=== PATIENT | male | born 1995 | race Caucasian/White ===

== ENCOUNTER 2024-05-17 21:53 | Emergency (ER) | payer BC ==
[2024-05-17] MEDS ORDERED: Sodium Chloride 0.9% 1000 ML 1,000 ML ONE (22:12)
[2024-05-17] MEDS ORDERED: Adenocard IV 6 MG/2 ML IV ONE (22:12)
--- NOTE | 2024-05-17 22:30 | ERPHSYRPT ---
- History of Present Illness Time Seen by Provider: 05/17/24 22:26 Historian: patient Exam Limitations: no limitations Physician History: 29-year-old male presented in the ER with sudden onset palpitation and chest tightness while he was lying in the bed prior to arrival. Patient reports mild shortness of breath because of chest tightness. Patient reports having similar symptoms 3 times in the past but has never been seen by physician chief of pathology. Patient is not SVT on presentation with heart rate in 170s. Denies any fever or chills, drug intake, extra caffeine intake. Aspirin Treatment Today: no aspirin today Allergies/Adverse Reactions: No Known Drug Allergies Allergy (Verified 05/17/24 22:31) Home Medications: Sertraline HCl 50 mg [Zoloft 50 mg Tablet] 50 mg PO DAILY 05/17/24 [History] - Review of Systems Constitutional: No Symptoms Eyes: No Symptoms Ears, Nose, & Throat: No Symptoms Respiratory: No Symptoms Cardiac: Palpitations Abdominal/Gastrointestinal: No Symptoms Genitourinary Symptoms: No Symptoms Musculoskeletal: No Symptoms Skin: No Symptoms Neurological: No Symptoms Endocrine: No Symptoms Hematologic/Lymphatic: No Symptoms - Nursing Vital Signs Nursing Vital Signs: Initial Vital Signs Temperature 97.8 F 05/17/24 22:00 Pulse Rate 179 H 05/17/24 22:00 Respiratory Rate 18 05/17/24 22:00 Blood Pressure 145/112 05/17/24 22:00 O2 Sat by Pulse Oximetry 99 05/17/24 22:00 Pain Scale Pain Intensity 3 - Physical Exam General Appearance: no apparent distress, alert Eye Exam: PERRL/EOMI Ears, Nose, Throat Exam: normal ENT inspection Neck Exam: normal inspection, supple, full range of motion Respiratory Exam: normal breath sounds, lungs clear Cardiovascular Exam: normal heart sounds, tachycardia Gastrointestinal/Abdomen Exam: soft, normal bowel sounds, No tenderness Back Exam: normal inspection, normal range of motion Extremity Exam: normal inspection, normal range of motion Neurologic Exam: alert, oriented x 3, cooperative, billing analyst II-XII nml as tested Skin Exam: normal color SpO2 Interpretation: normal SpO2: 98 O2 Delivery: Room Air - Course EKG Interpreted by Me: RATE (177 SVT), NORMAL AXIS, NORMAL INTERVALS, Other (ST depression in inferolateral leads) Rhythm Strip: Rate (EKG time 2216. Rate 123 bpm, sinus tach, normal axis, normal intervals, no ST elevations or depressions.) Ordered Tests: Active Orders 24 hr Category Date Time Status Metal Tile Setter STAT Care 05/17/24 22:26 Completed EKG-ER Only STAT Care 05/17/24 22:26 Completed IV Insertion STAT Care 05/17/24 22:26 Completed CHEST 1 VIEW (PORTABLE) Stat Exams 05/17/24 22:36 Taken CBC W DIFF Stat Lab 05/17/24 22:33 Completed CMP Stat Lab 05/17/24 22:33 Completed D-DIMER QUANTITATIVE Stat Lab 05/17/24 22:33 Completed MAG [MAGNESIUM] Stat Lab 05/17/24 22:33 Completed NT PRO BNPII Stat Lab 05/17/24 22:33 Completed TROPONIN Q4H Lab 05/17/24 22:33 Completed TROPONIN Q4H Lab 05/18/24 00:22 Completed TSH [TSH, 3RD Generation] Stat Lab 05/17/24 22:33 Completed Urine Triage Profile Stat Lab 05/17/24 22:46 Completed Medication Summary Discontinued Medications Generic Name Dose Route Start Last Admin Trade Name Freq PRN Reason Stop Dose Admin Adenosine Confirm 05/17/24 22:12 Adenosine 6 Mg/2 Ml Vial Administered 05/17/24 22:13 Dose 18 mg IV .STK-MED ONE Aspirin 324 mg 05/17/24 22:26 05/17/24 22:34 Aspirin 81 Mg Tab.Chew PO 05/17/24 22:27 324 mg STAT ONE Administration Aspirin Confirm 05/17/24 22:32 Aspirin 81 Mg Tab.Chew Administered 05/17/24 22:33 Dose 324 mg .ROUTE .STK-MED ONE Sodium Chloride Confirm 05/17/24 22:12 Sodium Chloride 0.9% 1000 Ml Administered 05/17/24 22:13 Dose 1,000 mls @ ud .ROUTE .STK-MED ONE Sodium Chloride 1,000 mls @ 999 mls/hr 05/17/24 22:26 05/17/24 23:47 Sodium Chloride 0.9% 1000 Ml IV 05/17/24 23:26 Infused .Q1H1M STA Infusion Lab/Rad Data: Laboratory Result Diagrams 05/17/24 22:33 05/17/24 22:33 Laboratory Results 05/18/24 05/17/24 05/17/24 Range/Units 00:22 22:46 22:33 WBC (4.23-9.07) x10^3/uL RBC (4.63-6.08) x10^6/uL Hgb (13.7-17.5) g/dL Hct (40.1-51.0) % MCV (79.0-92.2) fL MCH (25.7-32.2) pg MCHC (32.3-36.5) g/dL RDW (11.6-14.4) % Plt Count (163-337) x10^3/uL MPV (9.4-12.4) fL Gran % (34.0-67.9) % Immature Gran % (Auto) (0.001-0.429) % Nucleat RBC Rel Count (0.00-0.2) % Eos # (Auto) (0.04-0.54) x10^3/uL Immature Gran # (Auto) (0.001-0.031) x10^3u/L Absolute Lymphs (auto) (1.32-3.57) x10^3/uL Absolute Monos (auto) (0.30-0.82) x10^3/uL Absolute Nucleated RBC (0.00-0.012) x10^3u/L Lymphocytes % (21.8-53.1) % Monocytes % (5.3-12.2) % Eosinophils % (0.8-7.0) % Basophils % (0.2-1.2) % Absolute Granulocytes (1.78-5.38) x10^3/uL Basophils # (0.01-0.08) x10^3/uL D-Dimer (0.0-0.50) mg/L Sodium (135-145) mmol/L Potassium (3.5-5.1) mmol/L Chloride (98-107) mmol/L Carbon Dioxide (22-30) mmol/L Anion Gap (5-15) MEQ/L BUN (9-20) mg/dL Creatinine (0.66-1.25) mg/dL Estimated GFR ML/MIN Glucose (74-106) mg/dL Calcium (8.4-10.2) mg/dL Magnesium (1.6-2.3) mg/dL Total Bilirubin (0.2-1.3) mg/dL AST (17-59) U/L ALT (0-50) U/L Alkaline Phosphatase (38-126) U/L Troponin I < 0.012 < 0.012 (0.000-0.033) ng/mL NT-Pro-B Natriuret Pep (<300) pg/mL Serum Total Protein (6.3-8.2) g/dL Albumin (3.5-5.0) g/dL TSH 3rd Generation (0.470-4.680) mIU/L Urine Opiates Level NEGATIVE (NEGATIVE) Ur Methadone NEGATIVE (NEGATIVE) Urine Barbiturates NEGATIVE (NEGATIVE) Ur Phencyclidine (PCP) NEGATIVE (NEGATIVE) Urine Amphetamine NEGATIVE (NEGATIVE) U Benzodiazepine Level NEGATIVE (NEGATIVE) Urine Cocaine NEGATIVE (NEGATIVE) Urine Marijuana (THC) NEGATIVE (NEGATIVE) 05/17/24 05/17/24 05/17/24 Range/Units 22:33 22:33 22:33 WBC (4.23-9.07) x10^3/uL RBC (4.63-6.08) x10^6/uL Hgb (13.7-17.5) g/dL Hct (40.1-51.0) % MCV (79.0-92.2) fL MCH (25.7-32.2) pg MCHC (32.3-36.5) g/dL RDW (11.6-14.4) % Plt Count (163-337) x10^3/uL MPV (9.4-12.4) fL Gran % (34.0-67.9) % Immature Gran % (Auto) (0.001-0.429) % Nucleat RBC Rel Count (0.00-0.2) % Eos # (Auto) (0.04-0.54) x10^3/uL Immature Gran # (Auto) (0.001-0.031) x10^3u/L Absolute Lymphs (auto) (1.32-3.57) x10^3/uL Absolute Monos (auto) (0.30-0.82) x10^3/uL Absolute Nucleated RBC (0.00-0.012) x10^3u/L Lymphocytes % (21.8-53.1) % Monocytes % (5.3-12.2) % Eosinophils % (0.8-7.0) % Basophils % (0.2-1.2) % Absolute Granulocytes (1.78-5.38) x10^3/uL Basophils # (0.01-0.08) x10^3/uL D-Dimer < 0.19 (0.0-0.50) mg/L Sodium 140 (135-145) mmol/L Potassium 3.6 (3.5-5.1) mmol/L Chloride 99 (98-107) mmol/L Carbon Dioxide 29 (22-30) mmol/L Anion Gap 14.6 (5-15) MEQ/L BUN 19 (9-20) mg/dL Creatinine 1.20 (0.66-1.25) mg/dL Estimated GFR 82.9 ML/MIN Glucose 98 (74-106) mg/dL Calcium 9.6 (8.4-10.2) mg/dL Magnesium 2.1 (1.6-2.3) mg/dL Total Bilirubin 0.50 (0.2-1.3) mg/dL AST 62 H (17-59) U/L ALT 79 H (0-50) U/L Alkaline Phosphatase 106 (38-126) U/L Troponin I (0.000-0.033) ng/mL NT-Pro-B Natriuret Pep < 20.0 (<300) pg/mL Serum Total Protein 8.2 (6.3-8.2) g/dL Albumin 4.8 (3.5-5.0) g/dL TSH 3rd Generation 1.488 (0.470-4.680) mIU/L Urine Opiates Level (NEGATIVE) Ur Methadone (NEGATIVE) Urine Barbiturates (NEGATIVE) Ur Phencyclidine (PCP) (NEGATIVE) Urine Amphetamine (NEGATIVE) U Benzodiazepine Level (NEGATIVE) Urine Cocaine (NEGATIVE) Urine Marijuana (THC) (NEGATIVE) 05/17/24 Range/Units 22:33 WBC 11.1 H (4.23-9.07) x10^3/uL RBC 5.39 (4.63-6.08) x10^6/uL Hgb 16.6 (13.7-17.5) g/dL Hct 48.3 (40.1-51.0) % MCV 89.6 (79.0-92.2) fL MCH 30.8 (25.7-32.2) pg MCHC 34.4 (32.3-36.5) g/dL RDW 11.9 (11.6-14.4) % Plt Count 314 (163-337) x10^3/uL MPV 9.5 (9.4-12.4) fL Gran % 57.0 (34.0-67.9) % Immature Gran % (Auto) 0.3 (0.001-0.429) % Nucleat RBC Rel Count 0.0 (0.00-0.2) % Eos # (Auto) 0.09 (0.04-0.54) x10^3/uL Immature Gran # (Auto) 0.03 (0.001-0.031) x10^3u/L Absolute Lymphs (auto) 3.35 (1.32-3.57) x10^3/uL Absolute Monos (auto) 1.27 H (0.30-0.82) x10^3/uL Absolute Nucleated RBC 0.00 (0.00-0.012) x10^3u/L Lymphocytes % 30.1 (21.8-53.1) % Monocytes % 11.4 (5.3-12.2) % Eosinophils % 0.8 (0.8-7.0) % Basophils % 0.4 (0.2-1.2) % Absolute Granulocytes 6.34 H (1.78-5.38) x10^3/uL Basophils # 0.04 (0.01-0.08) x10^3/uL D-Dimer (0.0-0.50) mg/L Sodium (135-145) mmol/L Potassium (3.5-5.1) mmol/L Chloride (98-107) mmol/L Carbon Dioxide (22-30) mmol/L Anion Gap (5-15) MEQ/L BUN (9-20) mg/dL Creatinine (0.66-1.25) mg/dL Estimated GFR ML/MIN Glucose (74-106) mg/dL Calcium (8.4-10.2) mg/dL Magnesium (1.6-2.3) mg/dL Total Bilirubin (0.2-1.3) mg/dL AST (17-59) U/L ALT (0-50) U/L Alkaline Phosphatase (38-126) U/L Troponin I (0.000-0.033) ng/mL NT-Pro-B Natriuret Pep (<300) pg/mL Serum Total Protein (6.3-8.2) g/dL Albumin (3.5-5.0) g/dL TSH 3rd Generation (0.470-4.680) mIU/L Urine Opiates Level (NEGATIVE) Ur Methadone (NEGATIVE) Urine Barbiturates (NEGATIVE) Ur Phencyclidine (PCP) (NEGATIVE) Urine Amphetamine (NEGATIVE) U Benzodiazepine Level (NEGATIVE) Urine Cocaine (NEGATIVE) Urine Marijuana (THC) (NEGATIVE) - Progress Progress: improved, re-examined Air Movement: good Progress Note: 05/18/24 00:55 29-year-old is evaluated in the ER for sudden onset palpitations prior to arrival with some chest tightness. Patient was in SVT on presentation with h eart rate in 170s and 180s. Is given fluid bolus and adenosine 6 with conversion to sinus tach initially followed by normal sinus rhythm. Patient is not having any chest pain palpitations or shortness of breath anymore. Has negative troponins x 2, D-dimers. Normal white count, fairly unremarkable chemistries. Chest x-ray negative for any acute cardiopulmonary findings. I have discussed the results of workup with patient and recommended observation admission but patient prefers to go home which I believe is reasonable as patient is converted and does have history of SVT in the past, I believe patient needs EP study and out follow-up with cardiology. I would start him on low-dose metoprolol. Patient has normal TSH as well. Blood Culture(s) Obtained: No Antibiotics given: No Counseled pt/family regarding: diagnosis, need for follow-up, rad results Medical Desision Making - Diagnostic Testing Diagnostic test were ordered, analyzed, and reviewed by me: Yes Radiological Interpretation: Interpreted by me, Reviewed by me - Risk of complications The pt has a mod risk of morbidity or mortality based on: Need for prescription drug management - Departure Departure Disposition: Home Clinical Impression: Paroxysmal SVT (supraventricular tachycardia) Condition: Stable Critical Care Time: Yes Critical Care Time(excluding separately billable procedures): Critical 30-74 mins Referrals: DOCTOR,NO FAMILY [Primary Care Provider] - Follow up/PCP as directed DIONISIO PEACE [CONSULTING PHYSICIAN] - Follow up/PCP as directed (call for appointment ) Instructions: Supraventricular tachycardia (SVT) Additional Instructions: Drink plenty of fluids. Do not take caffeinated beverages. Follow-up with primary care and cardiology for reevaluation. Return to ER for palpitations, chest pain or difficulty breathing etc. Prescriptions: Metoprolol Tartrate 25 mg [Lopressor 25MG Tab] 12.5 mg PO BID 30 Days #15 tab
[2024-05-17] MEDS ORDERED: BABY ASPIRIN 81 MG CHEW ONE (22:32)
[2024-05-17] MEDS: Sodium Chloride 0.9% 1000 ML 1,000 ML IV STA (22:34)
[2024-05-17] MEDS: BABY ASPIRIN 81 MG CHEW PO ONE (22:34)
[2024-05-17 22:36] LABS: Absolute Neutrophil Ct (ANC) 6.34 x10^3/uL (1.78-5.38); BASOPHIL % 0.4 % (0.2-1.2); Basophil (Absolute #) 0.04 x10^3/uL (0.01-0.08); Eosinophil % 0.8 % (0.8-7.0); Eosinophil (Absolute #) 0.09 x10^3/uL (0.04-0.54); Hematocrit 48.3 % (40.1-51.0); Hemoglobin 16.6 g/dL (13.7-17.5); IMMATURE GRAN # 0.03 x10^3u/L (0.001-0.031); IMMATURE GRAN % 0.3 % (0.001-0.429); Lymphocyte (Absolute #) 3.35 x10^3/uL (1.32-3.57); Lymphocytes % 30.1 % (21.8-53.1); Mean Cell Volume 89.6 fL (79.0-92.2); Mean Corpuscular Hemoglobin 30.8 pg (25.7-32.2); Mean Corpuscular Hgb Concent. 34.4 g/dL (32.3-36.5); Mean Platelet Volume 9.5 fL (9.4-12.4); Monocyte (Absolute #) 1.27 x10^3/uL (0.30-0.82); Monocytes % 11.4 % (5.3-12.2); Platelet Count 314 x10^3/uL (163-337); Red Blood Count 5.39 x10^6/uL (4.63-6.08); Red Cell Distribution Width 11.9 % (11.6-14.4); White Blood Count 11.1 x10^3/uL (4.23-9.07)
[2024-05-17 22:38] VITALS: TEMP 97.8
[2024-05-17 22:53] LABS: ALBUMIN 4.8 g/dL (3.5-5.0); ALKALINE PHOSPHATASE 106 U/L (38-126); ANION GAP 14.6 MEQ/L (5-15); BLOOD UREA NITROGEN 19 mg/dL (9-20); CHLORIDE 99 mmol/L (98-107); Calcium 9.6 mg/dL (8.4-10.2); Carbon Dioxide 29 mmol/L (22-30); EST GLOMERULAR FILTRATION RATE 82.9 ML/MIN; Glucose 98 mg/dL (74-106); NT PRO BNPII < 20.0 pg/mL (<300); Potassium 3.6 mmol/L (3.5-5.1); SGOT/AST 62 U/L (17-59); SGPT/ALT 79 U/L (0-50); SODIUM 140 mmol/L (135-145); Total Protein 8.2 g/dL (6.3-8.2)
[2024-05-17 23:24] LABS: Amphetamine,Urine NEGATIVE (NEGATIVE); Barbiturate,Urine NEGATIVE (NEGATIVE); Benzodiazepine,Urine NEGATIVE (NEGATIVE); Cocaine,Urine NEGATIVE (NEGATIVE); Methadone,Urine NEGATIVE (NEGATIVE); Opiate,Urine NEGATIVE (NEGATIVE); PCP,Urine NEGATIVE (NEGATIVE); THC,Urine NEGATIVE (NEGATIVE)
[2024-05-17 23:35] LABS: MAGNESIUM 2.1 mg/dL (1.6-2.3); TSH, 3RD Generation 1.488 mIU/L (0.470-4.680)
[2024-05-17 23:59] VITALS: O2SAT 98
[2024-05-18 00:52] VITALS: BP 132/86; PULSE 79; RESP 14
--- NOTE | 2024-05-18 09:29 | XRAY ---
Indication: Palpitations. Comparison: May 11, 2023 Portable chest again demonstrates normal heart, lungs, and bony thorax.
== END 2024-05-18 00:52 | disposition home or self-care (01) ==
LOC: ED 21:53
DX: I47.19 Other supraventricular tachycardia (principal); R07.9 Chest pain, unspecified; Z79.899 Other long term (current) drug therapy
CPT/HCPCS: 36415; 71045; 80053; 80307; 83735; 83880; 84443; 84484; 85025; 85379; 93005; 93041; 96360; 99284; 99291; J0153; A9270-GY

== ENCOUNTER 2024-05-18 14:41 | Emergency (ER) | payer BC ==
--- NOTE | 2024-05-18 14:44 | ERPHSYRPT ---
- History of Present Illness Time Seen by Provider: 05/18/24 14:44 Source: patient, family Exam Limitations: no limitations Physician History: This is a 29-year-old white male patient who does not have a primary care provider and presents with chest tightness similar symptoms that brought him to the emergency department yesterday. He does not have the rapid palpitations or discomfort that goes into his left shoulder today. Patient was prescribed metoprolol at a low dose yesterday but the patient has not yet taken any of that medication. The medication was sent to a different pharmacy than what he is expected. He does not have shortness of breath. He has never been a smoker. He has never seen a mold carrier. He does not have a primary care provider. He has not been on any new medications. He does have a history of depression. His cardiac workup yesterday, 05/17/2024, was negative at 0-hour and 3-hour time intervals. Timing/Duration: today Quality: tightness Location: substernal, central Severity of Pain-Max: mild Severity of Pain-Current: mild Modifying Factors: Improves With: nothing Nitro Today/Relief: no nitro taken today Aspirin Treatment Today: no aspirin today, 81 mg x 4, provided by ED Associated Symptoms: chest pain (Described as substernal, central nonradiating chest tightness), No nausea, No vomiting, No abdominal pain, No shortness of breath Prior Chest Pain/Cardiac Workup: recently seen/treated Allergies/Adverse Reactions: No Known Drug Allergies Allergy (Verified 05/18/24 14:51) Home Medications: Sertraline HCl 50 mg [Zoloft 50 mg Tablet] 50 mg PO DAILY 05/17/24 [History] Hx Tetanus, Diphtheria Vaccination/Date Given: Yes Hx Influenza Vaccination/Date Given: No Hx Pneumococcal Vaccination/Date Given: No Travel Risk - International Travel Have you traveled outside of the country in past 3 weeks: No - Emerging Infectious Disease Are you exhibiting symptoms associated with any current EIDs: No - Review of Systems Constitutional: No Symptoms Eyes: No Symptoms Ears, Nose, & Throat: No Symptoms Respiratory: No Symptoms Cardiac: Chest Pain Abdominal/Gastrointestinal: No Symptoms Genitourinary Symptoms: No Symptoms Musculoskeletal: No Symptoms Skin: No Symptoms Neurological: No Symptoms Psychological: No Symptoms Endocrine: No Symptoms Hematologic/Lymphatic: No Symptoms Immunological/Allergic: No Symptoms All Other Systems: Reviewed and Negative - Past Medical History Pertinent Past Medical History: No - Past Surgical History Past Surgical History: No - Social History Smoking Status: Never smoker Exposure to second hand smoke: No Drug Use: none - Social Determinants of Health Will the patient participate in the screening: Declined to provide - Nursing Vital Signs Nursing Vital Signs: Initial Vital Signs Temperature 98 F 05/18/24 14:57 Pulse Rate 82 05/18/24 14:57 Respiratory Rate 15 05/18/24 14:57 Blood Pressure 142/101 05/18/24 14:57 O2 Sat by Pulse Oximetry 97 05/18/24 14:57 Pain Scale Pain Intensity 0 - Physical Exam General Appearance: no apparent distress, alert, anxiety Eye Exam: PERRL/EOMI, eyes nml inspection Ears, Nose, Throat Exam: normal ENT inspection, moist mucous membranes Neck Exam: normal inspection, non-tender, supple, full range of motion Respiratory Exam: normal breath sounds, chest tenderness (Described as a tig htness), lungs clear, airway intact, No respiratory distress Cardiovascular Exam: regular rate/rhythm, normal heart sounds, normal peripheral pulses Gastrointestinal/Abdomen Exam: soft, normal bowel sounds, No tenderness Rectal Exam: not done Back Exam: normal inspection, normal range of motion, No CVA tenderness, No vertebral tenderness Extremity Exam: normal inspection, normal range of motion, pelvis stable Neurologic Exam: alert, oriented x 3, cooperative, internet application developer II-XII nml as tested, normal mood/affect, nml cerebellar function, nml station & gait, sensation nml Skin Exam: normal color, warm, dry Lymphatic Exam: No adenopathy SpO2 Interpretation: normal O2 Delivery: Room Air - Course Nursing assessment & vital signs reviewed: Yes EKG Interpreted by Me: RATE (80), Sinus Rhythm, NORMAL AXIS, NORMAL INTERVALS, NORMAL QRS, NORMAL ST-T, Other (Acute ischemic changes on today's twelve-lead EKG. QTc is 417) Ordered Tests: Active Orders 24 hr Category Date Time Status [place] STAT Care 05/18/24 15:23 Active EKG-ER Only STAT Care 05/18/24 15:19 Active IV Insertion STAT Care 05/18/24 15:19 Active CBC W DIFF Stat Lab 05/18/24 15:25 Completed CMP Stat Lab 05/18/24 15:25 Completed D-DIMER QUANTITATIVE Stat Lab 05/18/24 15:25 Completed MAGNESIUM Stat Lab 05/18/24 15:25 Completed TROPONIN Q4H Lab 05/18/24 15:25 Completed TROPONIN Q4H Lab 05/18/24 19:30 Ordered TROPONIN Q4H Lab 05/18/24 23:30 Ordered Medication Summary Discontinued Medications Generic Name Dose Route Start Last Admin Trade Name Pita PRN Reason Stop Dose Admin Acetaminophen 650 mg 05/18/24 15:49 Acetaminophen 325 Mg Tablet PO 05/18/24 15:50 STAT ONE Lab/Rad Data: Laboratory Result Diagrams 05/18/24 15:25 05/18/24 15:25 Laboratory Results 05/18/24 05/18/24 05/18/24 Range/Units 15:25 15:25 15:25 WBC (4.23-9.07) x10^3/uL RBC (4.63-6.08) x10^6/uL Hgb (13.7-17.5) g/dL Hct (40.1-51.0) % MCV (79.0-92.2) fL MCH (25.7-32.2) pg MCHC (32.3-36.5) g/dL RDW (11.6-14.4) % Plt Count (163-337) x10^3/uL MPV (9.4-12.4) fL Gran % (34.0-67.9) % Immature Gran % (Auto) (0.001-0.429) % Nucleat RBC Rel Count (0.00-0.2) % Eos # (Auto) (0.04-0.54) x10^3/uL Immature Gran # (Auto) (0.001-0.031) x10^3u/L Absolute Lymphs (auto) (1.32-3.57) x10^3/uL Absolute Monos (auto) (0.30-0.82) x10^3/uL Absolute Nucleated RBC (0.00-0.012) x10^3u/L Lymphocytes % (21.8-53.1) % Monocytes % (5.3-12.2) % Eosinophils % (0.8-7.0) % Basophils % (0.2-1.2) % Absolute Granulocytes (1.78-5.38) x10^3/uL Basophils # (0.01-0.08) x10^3/uL D-Dimer < 0.19 (0.0-0.50) mg/L Sodium 139 (135-145) mmol/L Potassium 3.8 (3.5-5.1) mmol/L Chloride 100 (98-107) mmol/L Carbon Dioxide 30 (22-30) mmol/L Anion Gap 11.5 (5-15) MEQ/L BUN 16 (9-20) mg/dL Creatinine 1.20 (0.66-1.25) mg/dL Estimated GFR 82.9 ML/MIN Glucose 82 (74-106) mg/dL Calcium 9.5 (8.4-10.2) mg/dL Magnesium 2.1 (1.6-2.3) mg/dL Total Bilirubin 0.50 (0.2-1.3) mg/dL AST 67 H (17-59) U/L ALT 93 H (0-50) U/L Alkaline Phosphatase 79 (38-126) U/L Troponin I < 0.012 (0.000-0.033) ng/mL Serum Total Protein 7.9 (6.3-8.2) g/dL Albumin 4.6 (3.5-5.0) g/dL 05/18/24 Range/Units 15:25 WBC 8.6 (4.23-9.07) x10^3/uL RBC 5.03 (4.63-6.08) x10^6/uL Hgb 15.4 (13.7-17.5) g/dL Hct 45.3 (40.1-51.0) % MCV 90.1 (79.0-92.2) fL MCH 30.6 (25.7-32.2) pg MCHC 34.0 (32.3-36.5) g/dL RDW 12.0 (11.6-14.4) % Plt Count 294 (163-337) x10^3/uL MPV 9.4 (9.4-12.4) fL Gran % 67.5 (34.0-67.9) % Immature Gran % (Auto) 0.3 (0.001-0.429) % Nucleat RBC Rel Count 0.0 (0.00-0.2) % Eos # (Auto) 0.06 (0.04-0.54) x10^3/uL Immature Gran # (Auto) 0.03 (0.001-0.031) x10^3u/L Absolute Lymphs (auto) 1.79 (1.32-3.57) x10^3/uL Absolute Monos (auto) 0.92 H (0.30-0.82) x10^3/uL Absolute Nucleated RBC 0.00 (0.00-0.012) x10^3u/L Lymphocytes % 20.7 L (21.8-53.1) % Monocytes % 10.6 (5.3-12.2) % Eosinophils % 0.7 L (0.8-7.0) % Basophils % 0.2 (0.2-1.2) % Absolute Granulocytes 5.82 H (1.78-5.38) x10^3/uL Basophils # 0.02 (0.01-0.08) x10^3/uL D-Dimer (0.0-0.50) mg/L Sodium (135-145) mmol/L Potassium (3.5-5.1) mmol/L Chloride (98-107) mmol/L Carbon Dioxide (22-30) mmol/L Anion Gap (5-15) MEQ/L BUN (9-20) mg/dL Creatinine (0.66-1.25) mg/dL Estimated GFR ML/MIN Glucose (74-106) mg/dL Calcium (8.4-10.2) mg/dL Magnesium (1.6-2.3) mg/dL Total Bilirubin (0.2-1.3) mg/dL AST (17-59) U/L ALT (0-50) U/L Alkaline Phosphatase (38-126) U/L Troponin I (0.000-0.033) ng/mL Serum Total Protein (6.3-8.2) g/dL Albumin (3.5-5.0) g/dL - Progress Progress: improved Air Movement: good Progress Note: 05/18/24 15:18 I medical decision making and the assignment of moderate complexity to this patient's medical issue today is based on review of the patient's past medical history, review the patient's medication list, reviewed patient drug allergy list, history present illness and physical findings on examination. The workup today includes placement of an intravenous line, CBC, CMP, magnesium level, D-di donaldo level, troponin level, twelve-lead EKG. I will not repeat thyroid levels or chest x-ray as they were normal 24 hours ago. Differential diagnosis includes but is not limited to anxiety, electrolyte abnormalities, arrhythmia, myocardial infarction, pulmonary embolus 05/18/24 16:12 Interpreted the patient's laboratory data results. Based on the laboratory data results, there are no acute, emergent medical issues. Blood Culture(s) Obtained: No Antibiotics given: No Counseled pt/family regarding: lab results, diagnosis, need for follow-up Medical Desision Making - Independent Historian Additional History obtained from: Spouse - Diagnostic Testing Diagnostic test were ordered, analyzed, and reviewed by me: Yes - Risk of complications Low Risk: Low risk of morbidity from additional dx testing or treatment - Departure Departure Disposition: Home Clinical Impression: Tightness in chest Condition: Stable Critical Care Time: No Referrals: DOCTOR,NO FAMILY [Primary Care Provider] - Follow up/PCP as directed CRUZ CARLSON NP [NON-STAFF PHY W/O PRIVILEGES] - Follow up/PCP as directed Additional Instructions: ER follow-up appointment scheduled with Nicolasa Carlson NP on 05/23/24 at 9:15am. If you need to change or cancel this appointment, please call the office at [phone] at least 24 hours prior to the scheduled appointment.
[2024-05-18 15:10] VITALS: TEMP 98
[2024-05-18 15:31] LABS: Absolute Neutrophil Ct (ANC) 5.82 x10^3/uL (1.78-5.38); BASOPHIL % 0.2 % (0.2-1.2); Basophil (Absolute #) 0.02 x10^3/uL (0.01-0.08); Eosinophil % 0.7 % (0.8-7.0); Eosinophil (Absolute #) 0.06 x10^3/uL (0.04-0.54); Hematocrit 45.3 % (40.1-51.0); Hemoglobin 15.4 g/dL (13.7-17.5); IMMATURE GRAN # 0.03 x10^3u/L (0.001-0.031); IMMATURE GRAN % 0.3 % (0.001-0.429); Lymphocyte (Absolute #) 1.79 x10^3/uL (1.32-3.57); Lymphocytes % 20.7 % (21.8-53.1); Mean Cell Volume 90.1 fL (79.0-92.2); Mean Corpuscular Hemoglobin 30.6 pg (25.7-32.2); Mean Platelet Volume 9.4 fL (9.4-12.4); Monocyte (Absolute #) 0.92 x10^3/uL (0.30-0.82); Monocytes % 10.6 % (5.3-12.2); Neutrophil % 67.5 % (34.0-67.9); Platelet Count 294 x10^3/uL (163-337); Red Blood Count 5.03 x10^6/uL (4.63-6.08); White Blood Count 8.6 x10^3/uL (4.23-9.07)
[2024-05-18 15:56] LABS: ALBUMIN 4.6 g/dL (3.5-5.0); ANION GAP 11.5 MEQ/L (5-15); BILIRUBIN,TOTAL 0.5 mg/dL (0.2-1.3); Calcium 9.5 mg/dL (8.4-10.2); Creatinine 1 1.2 mg/dL (0.66-1.25); EST GLOMERULAR FILTRATION RATE 82.9 ML/MIN; MAGNESIUM 2.1 mg/dL (1.6-2.3); Potassium 3.8 mmol/L (3.5-5.1); Total Protein 7.9 g/dL (6.3-8.2)
[2024-05-18] MEDS ORDERED: TYLENOL 325 MG ONE (16:13)
[2024-05-18] MEDS: TYLENOL 325 MG PO ONE (16:14)
[2024-05-18 16:23] VITALS: PULSE 80
[2024-05-18 16:26] VITALS: BP 137/93; RESP 16; O2SAT 98
== END 2024-05-18 16:32 | disposition home or self-care (01) ==
LOC: ED 14:41
DX: R07.9 Chest pain, unspecified (principal); R00.2 Palpitations; Z79.899 Other long term (current) drug therapy
CPT/HCPCS: 36415; 80053; 83735; 84484; 85025; 85379; 93005; 93041; 93225; 99284; 99285; A9270-GY